=== PATIENT | male | born 1990 | race Caucasian/White ===

== ENCOUNTER 2023-06-11 21:30 | Emergency (ER) | payer OTHER ==
[2023-06-11 21:36] VITALS: BP 104/61; PULSE 104; RESP 18; TEMP 99.6; BMI 23.1
[2023-06-11] MEDS ORDERED: LIDOCAINE PATCH REMOVAL MC SCH (22:00)
[2023-06-11] MEDS ORDERED: METHOCARBAMOL 500 MG TABLET PO ONE (22:01)
[2023-06-11] MEDS ORDERED: KETOROLAC TROMETHAMINE 30 MG/1 ML VIAL IM ONE (22:01)
[2023-06-11] MEDS ORDERED: KETOROLAC TROMETHAMINE 30 MG/1 ML VIAL ONE (22:07)
[2023-06-11] MEDS ORDERED: METHOCARBAMOL 500 MG TABLET ONE (22:07)
[2023-06-11] MEDS ORDERED: LIDOCAINE 5% TOPICAL PATCH TP ONE (22:19)
[2023-06-11] MEDS ORDERED: LIDOCAINE 5% TOPICAL PATCH ONE (23:09)
== END 2023-06-11 23:45 | disposition home or self-care (01) ==
LOC: JER 21:30
PROC: 3E0233Z Introduction of Anti-inflammatory into Muscle, Percutaneous Approach (ICD-10-PCS; principal; 2023-06-11)
DX: R07.89 Other chest pain (principal); M79.601 Pain in right arm; M79.605 Pain in left leg; V43.52XA Car driver injured in collision with other type car in traffic accident, initial encounter
CPT/HCPCS: 71101-TC-RT-FY; 72170-TC-FY; 73030-TC-RT-FY; 73060-TC-RT-FY; 73070-TC-RT-FY; 73090-TC-RT-FY; 73110-TC-RT-FY; 73130-TC-RT-FY; 73502-TC-RT-FY; 73552-TC-RT-FY; 73562-TC-RT-FY; 73590-TC-RT-FY; 73610-TC-RT-FY; 73630-TC-RT-FY; 99284-25

== ENCOUNTER 2023-06-14 15:42 | Emergency (ER) | payer OTHER ==
[2023-06-14 15:56] VITALS: BP 127/72; PULSE 90; RESP 14; TEMP 97.8; BMI 23.1
[2023-06-14] MEDS ORDERED: KETOROLAC TROMETHAMINE 30 MG/1 ML VIAL IM ONE (16:50)
[2023-06-14] MEDS ORDERED: ACETAMINOPHEN 650 MG/20.3 ML ORAL SOLUTION (CUPS) PO ONE (16:50)
[2023-06-14] MEDS ORDERED: LIDOCAINE 5% TOPICAL PATCH TP ONE (16:55)
[2023-06-14] MEDS ORDERED: ACETAMINOPHEN 325 MG TABLET (FP) ONE (17:03)
[2023-06-14] MEDS ORDERED: LIDOCAINE 5% TOPICAL PATCH ONE (17:03)
[2023-06-14] MEDS ORDERED: KETOROLAC TROMETHAMINE 30 MG/1 ML VIAL ONE (17:03)
[2023-06-14] MEDS ORDERED: LIDOCAINE PATCH REMOVAL MC SCH (22:00)
== END 2023-06-14 18:09 | disposition home or self-care (01) ==
LOC: JERFT 15:42 → JER 15:42 → JERFT 18:09
PROC: 3E0233Z Introduction of Anti-inflammatory into Muscle, Percutaneous Approach (ICD-10-PCS; principal; 2023-06-14)
DX: M25.512 Pain in left shoulder (principal); V43.02XA Car driver injured in collision with other type car in nontraffic accident, initial encounter
CPT/HCPCS: 99284-25